=== PATIENT | female | born 1990 | race African-American/Black ===

== ENCOUNTER 2019-12-05 12:45 | Emergency (ER) | payer MEDICAID ==
[~2019-12-05] VITALS: Ht 170.2 cm; Wt 99.0 kg
[2019-12-05] MEDS ORDERED: HYDROCODONE/ACETAMINOPHEN 5/325MG TABLET PO ONE (14:00)
[2019-12-05] MEDS ORDERED: BACITRACIN ZINC OINT UDPKT TOP ONE (14:00)
[2019-12-05] MEDS ORDERED: LIDOCAINE HCL/PF 1% 10 MG/ML 5ML VIAL IJ ONE (14:00)
[2019-12-05 14:44] VITALS: BP 132/70
== END 2019-12-05 16:15 | disposition home or self-care (01) ==
LOC: ER 12:56
DX: S61.412A Laceration without foreign body of left hand, initial encounter (principal); W26.8XXA Contact with other sharp object(s), not elsewhere classified, initial encounter; Y93.89 Activity, other specified; Y92.89 Other specified places as the place of occurrence of the external cause; Y99.8 Other external cause status
CPT/HCPCS: 12002; 73130; 81025; 99283; J3490

== ENCOUNTER 2019-12-07 10:29 | Emergency (ER) | payer MEDICAID ==
[~2019-12-07] VITALS: Ht 170.2 cm; Wt 219.0 kg
[2019-12-07 11:25] VITALS: BP 123/79
== END 2019-12-07 12:56 | disposition home or self-care (01) ==
LOC: ER 10:29
DX: Z48.00 Encounter for change or removal of nonsurgical wound dressing (principal); J45.909 Unspecified asthma, uncomplicated
CPT/HCPCS: 99281

== ENCOUNTER 2019-12-13 09:01 | Emergency (ER) | payer MEDICAID ==
[~2019-12-13] VITALS: Ht 167.6 cm; Wt 100.0 kg
[2019-12-13 09:25] VITALS: BP 133/83
== END 2019-12-13 11:41 | disposition home or self-care (01) ==
LOC: ER 09:01
DX: Z48.02 Encounter for removal of sutures (principal); J45.909 Unspecified asthma, uncomplicated
CPT/HCPCS: 99281